=== PATIENT | female | born 1955 | race Native Hawaiian/Other Pacific Islander ===

== ENCOUNTER 2016-10-13 11:13 | Outpatient (CLI) | payer BC, OTHER ==
[~2016-10-13 11:13] MED LIST: BENICAR HCT1 TA2 PO; BENICAR40 MG PO; CEPHALEXIN500 MG PO; COLCRYS 0.6MG0.6 MG OR; FURO20TA67 PO; LIPITOR20 MG PO; PANT40TA PO; SIMV20TA2 PO; XYZAL5 MG OR
== END 2016-10-13 23:03 | disposition home or self-care (01) ==
LOC: RAD 11:13
DX: R05 Cough (principal)

== ENCOUNTER 2017-01-19 15:05 | Outpatient (CLI) | payer BC, OTHER | END 2017-01-19 16:00 | disposition home or self-care (01) | LOC: RAD 15:05 | DX: E55.9 Vitamin D deficiency, unspecified (principal) ==

== ENCOUNTER 2018-06-10 05:20 | Emergency (ER) | payer BC, OTHER ==
[~2018-06-10] VITALS: Ht 167.6 cm; Wt 94.8 kg
[2018-06-10 05:20] VITALS: TEMP 97.9
[2018-06-10 05:42] LABS: PLATELET COUNT 270 K/uL (152-353)
[2018-06-10 06:25] LABS: POTASSIUM 3.6 mmol/L (3.6-5.2)
[2018-06-10 09:45] VITALS: BP 118/60
== END 2018-06-10 10:20 | disposition home or self-care (01) ==
LOC: ED 05:20
PROVIDERS: Emergency Medicine
DX: B96.81 Helicobacter pylori [H. pylori] as the cause of diseases classified elsewhere (principal)
CPT/HCPCS: 36415; 80053; 81000; 82150; 83690; 85027; 86318; 96365; 96374; 96375; 96376; 99284; J2175; J2405; J2550; Q9963

== ENCOUNTER 2018-06-16 10:11 | Outpatient (CLI) | payer OTHER, BC | END 2018-06-16 19:19 | disposition home or self-care (01) | LOC: US 10:11 | DX: R94.5 Abnormal results of liver function studies (principal) ==

== ENCOUNTER 2018-06-16 10:20 | Day surgery (SDC) | payer OTHER, BC | END 2018-06-16 13:35 | disposition home or self-care (01) | LOC: OR 10:20 | PROC: 0DB68ZZ Excision of Stomach, Via Natural or Artificial Opening Endoscopic (ICD-10-PCS; principal; 2018-06-16) | PROC: 0DB88ZZ Excision of Small Intestine, Via Natural or Artificial Opening Endoscopic (ICD-10-PCS; 2018-06-16) | PROC: 0D758ZZ Dilation of Esophagus, Via Natural or Artificial Opening Endoscopic (ICD-10-PCS; 2018-06-16) | DX: K25.9 Gastric ulcer, unspecified as acute or chronic, without hemorrhage or perforation (principal); K21.0 Gastro-esophageal reflux disease with esophagitis; K22.2 Esophageal obstruction; K44.9 Diaphragmatic hernia without obstruction or gangrene; K29.80 Duodenitis without bleeding; K29.50 Unspecified chronic gastritis without bleeding; R19.00 Intra-abdominal and pelvic swelling, mass and lump, unspecified site; R13.19 Other dysphagia; R10.13 Epigastric pain; R11.2 Nausea with vomiting, unspecified; R10.12 Left upper quadrant pain | CPT/HCPCS: J2001; J2250; J2405; J2704 ==

== ENCOUNTER 2018-07-16 10:16 | Outpatient (CLI) | payer OTHER, BC | END 2018-07-16 19:16 | disposition home or self-care (01) | LOC: CT 10:16 | DX: R07.89 Other chest pain (principal) | CPT/HCPCS: 36415; 82565; 84520; Q9963 ==

== ENCOUNTER 2018-12-21 17:53 | Outpatient (CLI) | payer OTHER, BC | END 2018-12-21 20:33 | disposition home or self-care (01) | LOC: RAD 17:53 | DX: R05 Cough (principal) ==

== ENCOUNTER 2018-12-22 12:13 | Outpatient (CLI) | payer OTHER, BC ==
[2018-12-22 13:01] LABS: POTASSIUM 4.5 mmol/L (3.6-5.2); SODIUM 140 mmol/L (136-145)
[2018-12-22 13:29] LABS: PLATELET COUNT 258 K/uL (152-353)
== END 2018-12-22 20:13 | disposition home or self-care (01) ==
LOC: RESP 12:13
PROVIDERS: Nurse Practitioner Family
DX: R60.0 Localized edema (principal); J90 Pleural effusion, not elsewhere classified; R06.09 Other forms of dyspnea; J98.11 Atelectasis
CPT/HCPCS: 36415; 36600; 80053; 82550; 82805; 83880; 84484; 85027; 85379; 93306; Q9963

== ENCOUNTER 2018-12-28 11:59 | Outpatient (CLI) | payer OTHER, BC | END 2018-12-28 23:15 | disposition home or self-care (01) | LOC: RAD 11:59 | DX: J90 Pleural effusion, not elsewhere classified (principal) ==

== ENCOUNTER 2019-02-11 10:21 | Outpatient (CLI) | payer OTHER, BC | END 2019-02-11 19:13 | disposition home or self-care (01) | LOC: CT 10:21 | DX: J32.8 Other chronic sinusitis (principal) | CPT/HCPCS: 36415; 82565; 84520; Q9963 ==

== ENCOUNTER 2019-09-21 11:06 | Outpatient (CLI) | payer OTHER, BC | END 2019-09-21 21:11 | disposition home or self-care (01) | LOC: RAD 11:06 → MAMMO 11:06 → RAD 21:11 | DX: Z12.31 Encounter for screening mammogram for malignant neoplasm of breast (principal); M79.642 Pain in left hand; M79.641 Pain in right hand ==

== ENCOUNTER 2019-10-10 09:59 | Outpatient (CLI) | payer OTHER, BC | END 2019-10-10 19:05 | disposition home or self-care (01) | LOC: RAD 09:59 | DX: M81.0 Age-related osteoporosis without current pathological fracture (principal) ==

== ENCOUNTER 2019-12-23 13:25 | Outpatient (CLI) | payer OTHER, BC | END 2019-12-23 19:03 | disposition home or self-care (01) | LOC: CT 13:25 | DX: Z96.611 Presence of right artificial shoulder joint (principal) ==

== ENCOUNTER 2020-03-15 10:05 | Outpatient (CLI) | payer OTHER, BC ==
[2020-03-15 10:40] LABS: PLATELET COUNT 236 K/uL (152-353)
[2020-03-15 11:00] LABS: POTASSIUM 4.5 mmol/L (3.6-5.2)
== END 2020-03-15 22:52 | disposition home or self-care (01) ==
LOC: LABW 10:05
PROVIDERS: Internal Medicine
DX: E03.8 Other specified hypothyroidism (principal); I10 Essential (primary) hypertension; R06.09 Other forms of dyspnea
CPT/HCPCS: 36415; 80053; 81000; 82043; 82330; 82570; 83735; 84100; 84155; 84439; 84443; 85027; 85651; 86038

== ENCOUNTER 2020-04-06 10:06 | Outpatient (CLI) | payer OTHER, BC | END 2020-04-06 19:31 | disposition home or self-care (01) | LOC: CT 10:06 → RESP 11:00 → CT 19:31 | DX: R06.09 Other forms of dyspnea (principal); R60.0 Localized edema; R10.11 Right upper quadrant pain | CPT/HCPCS: Q9963 ==

== ENCOUNTER 2020-04-25 13:15 | Emergency (ER) | payer OTHER, BC ==
[~2020-04-25] VITALS: Ht 167.6 cm; Wt 93.4 kg
[2020-04-25 13:18] VITALS: TEMP 98.5
[2020-04-25 13:57] LABS: PLATELET COUNT 250 K/uL (152-353)
[2020-04-25 14:02] LABS: POTASSIUM 3.3 mmol/L (3.6-5.2); SODIUM 135 mmol/L (136-145)
[2020-04-25 14:30] LABS: PARTIAL THROMBOPLASTIN TIME 23.6 SECONDS (24.5-33.6)
[2020-04-25 20:15] VITALS: BP 138/70
== END 2020-04-25 20:15 | disposition home or self-care (01) ==
LOC: ED 13:15
PROVIDERS: Emergency Medicine
DX: I48.20 Chronic atrial fibrillation, unspecified (principal)
CPT/HCPCS: 80053; 82550; 82553; 84484; 85027; 85610; 85730; 93005; 96360; 96375; 99285; J3490

== ENCOUNTER 2020-06-21 10:33 | Outpatient (CLI) | payer OTHER, BC ==
[2020-06-21 10:53] LABS: PLATELET COUNT 221 K/uL (152-353)
[2020-06-21 11:06] LABS: POTASSIUM 3.7 mmol/L (3.6-5.2)
== END 2020-06-21 19:03 | disposition home or self-care (01) ==
LOC: LABW 10:33
PROVIDERS: Nurse Practitioner
DX: I48.92 Unspecified atrial flutter (principal)
CPT/HCPCS: 36415; 80053; 85027; 85610

== ENCOUNTER 2021-07-29 11:39 | Inpatient (IN) | payer BC ==
[~2021-07-29] VITALS: Ht 167.6 cm; Wt 96.4 kg
[2021-07-29 16:40] VITALS: BP 144/108; TEMP 98.7; Ht 167.6 cm; Wt 96.4 kg
[2021-07-29 17:23] LABS: PLATELET COUNT 225 K/uL (152-353)
[2021-07-29 17:54] LABS: POTASSIUM 3.2 mmol/L (3.6-5.2)
[2021-07-29 20:00] VITALS: BP 108/53; TEMP 98.3
[2021-07-30] VITALS (7 sets, daily range): BP systolic 98–144; BP diastolic 46–855; TEMP 97.8–98.7
[2021-07-30] MEDS ORDERED: METF500T PO (12:05)
[2021-07-30] MEDS ORDERED: LEVO0.1T6 PO (12:06)
[2021-07-30] MEDS ORDERED: METO-837 PO (12:07)
[2021-07-30] MEDS ORDERED: CHLORTHALID25 MG PO (12:08)
[2021-07-30] MEDS ORDERED: LIPITOR40 MG PO (12:08)
[2021-07-30] MEDS ORDERED: ELIQUIS5 MG PO (12:09)
[2021-07-30] MEDS ORDERED: PANTOPRAZOLE 40MG TA PO (12:09)
[2021-07-30] MEDS ORDERED: PEPCID40 MG PO (12:10)
[2021-07-30 12:13] LABS: PLATELET COUNT 147 K/uL (152-353)
[2021-07-30] MEDS ORDERED: FURO40TA93 PO (12:13)
[2021-07-30 12:35] LABS: POTASSIUM 3.2 mmol/L (3.6-5.2)
[2021-07-31 04:08] VITALS: BP 110/60; TEMP 97.8
[2021-07-31 08:00] VITALS: BP 124/65; TEMP 97.7
[2021-07-31 12:00] VITALS: BP 132/66; TEMP 98.4
[2021-07-31 13:15] LABS: PLATELET COUNT 153 K/uL (152-353)
[2021-07-31 13:35] LABS: POTASSIUM 4.6 mmol/L (3.6-5.2)
[2021-07-31 16:00] VITALS: BP 143/68; TEMP 98.4
[2021-07-31 20:00] VITALS: BP 127/86; TEMP 98.3
[2021-07-31 23:50] VITALS: BP 137/70; TEMP 98.8
[2021-08-01 04:00] VITALS: BP 176/87; TEMP 98.2
[2021-08-01 04:37] LABS: PLATELET COUNT 224 K/uL (152-353)
[2021-08-01 04:48] LABS: POTASSIUM 3.6 mmol/L (3.6-5.2)
[2021-08-01 08:00] VITALS: BP 133/64; TEMP 98.4
[2021-08-01 12:00] VITALS: BP 129/65; TEMP 98.8
[2021-08-01 16:00] VITALS: BP 127/62; TEMP 98.1
[2021-08-01 20:00] VITALS: BP 189/94; TEMP 98.7
[2021-08-02] VITALS: BP 122/64; TEMP 98.7
[2021-08-02 04:00] VITALS: BP 123/62; TEMP 98.5
[2021-08-02 04:15] LABS: PLATELET COUNT 179 K/uL (152-353)
[2021-08-02 08:00] VITALS: BP 131/58; TEMP 98.5
== END 2021-08-02 17:45 | disposition home or self-care (01) | DRG 438 ==
LOC: CT 11:39 → MED/SURG 16:20 → CT 16:20 → MED/SURG 08-02 17:45
PROVIDERS: ADMIT Family Medicine; ATTEND Family Medicine
DX: K85.80 Other acute pancreatitis without necrosis or infection (principal); I50.21 Acute systolic (congestive) heart failure; R78.81 Bacteremia; I11.0 Hypertensive heart disease with heart failure; E86.0 Dehydration; B96.20 Unspecified Escherichia coli [E. coli] as the cause of diseases classified elsewhere; E87.8 Other disorders of electrolyte and fluid balance, not elsewhere classified; E66.8 Other obesity; E11.9 Type 2 diabetes mellitus without complications; E78.49 Other hyperlipidemia; M15.8 Other polyosteoarthritis; K21.9 Gastro-esophageal reflux disease without esophagitis; K29.70 Gastritis, unspecified, without bleeding; E87.6 Hypokalemia; K72.90 Hepatic failure, unspecified without coma; Z68.29 Body mass index [BMI] 29.0-29.9, adult
CPT/HCPCS: 36415; 80053; 80061; 82150; 82550; 83605; 83690; 83735; 83880; 84100; 84443; 84484; 85027; 85379; 86140; 87040; 87077; 87186; 87205; 87635; 93005; 96365; 96366; 96367; 96375; J1650; J1885; J1940; J1956; J2175; J2405; J2543; J2550; J2765; J3475; J3480; J3490; U0003

== ENCOUNTER 2021-10-30 11:31 | Outpatient (CLI) | payer BC ==
[~2021-10-30 11:31] MED LIST changes: +CHLORTHALID25 MG PO; +ELIQUIS5 MG PO; +FURO40TA93 PO; +LEVO0.1T6 PO; +LIPITOR40 MG PO; +METF500T PO; +METO-837 PO; +PANTOPRAZOLE 40MG TA PO; +PEPCID40 MG PO
[2021-10-30 12:28] LABS: PLATELET COUNT 237 K/uL (152-353)
[2021-10-30 12:31] LABS: POTASSIUM 3.1 mmol/L (3.6-5.2)
== END 2021-10-30 19:26 | disposition home or self-care (01) ==
LOC: LABW 11:31
PROVIDERS: ATTEND Physician Assistant Medical
DX: R93.89 Abnormal findings on diagnostic imaging of other specified body structures (principal)
CPT/HCPCS: 36415; 80048; 85027

== ENCOUNTER 2022-06-18 08:15 | Outpatient (CLI) | payer BC ==
[2022-06-18 09:03] LABS: PLATELET COUNT 223 K/uL (152-353)
[2022-06-18 09:19] LABS: POTASSIUM 3.7 mmol/L (3.6-5.2)
== END 2022-06-18 19:26 | disposition home or self-care (01) ==
LOC: RAD 08:15
PROVIDERS: ATTEND Plastic Surgery
DX: Z01.812 Encounter for preprocedural laboratory examination (principal); Z01.818 Encounter for other preprocedural examination; Z01.811 Encounter for preprocedural respiratory examination; Z01.810 Encounter for preprocedural cardiovascular examination
CPT/HCPCS: 36415; 80048; 85027; 93005

== ENCOUNTER → 2022-08-06 | Outpatient (CLI) | payer BC | LOC: MRI 14:29 | PROVIDERS: ATTEND Nurse Practitioner Primary Care | DX: M25.552 Pain in left hip (principal) ==

== ENCOUNTER 2022-11-25 16:09 | Outpatient (CLI) | payer BC | END 2022-11-25 19:23 | disposition home or self-care (01) | LOC: RAD 16:09 | PROVIDERS: ATTEND Physician Assistant | DX: M54.59 Other low back pain (principal) ==

== ENCOUNTER 2023-01-12 10:59 | Outpatient (CLI) | payer BC ==
[2023-01-12 11:20] LABS: PLATELET COUNT 237 K/uL (152-353)
[2023-01-12 11:59] LABS: POTASSIUM 3.7 mmol/L (3.6-5.2)
== END 2023-01-12 20:41 | disposition home or self-care (01) ==
LOC: LABW 10:59
PROVIDERS: ATTEND Internal Medicine
DX: I10 Essential (primary) hypertension (principal); E55.9 Vitamin D deficiency, unspecified; Z79.899 Other long term (current) drug therapy
CPT/HCPCS: 36415; 80053; 81002; 82043; 82306; 82570; 83735; 84100; 84156; 85027

== ENCOUNTER 2023-01-19 21:52 | Emergency (ER) | payer BC ==
[~2023-01-19] VITALS: Ht 167.6 cm; Wt 99.8 kg
[2023-01-19 22:02] VITALS: TEMP 98.7
[2023-01-19 22:32] LABS: PLATELET COUNT 230 K/uL (152-353)
[2023-01-19 22:51] LABS: POTASSIUM 3.2 mmol/L (3.6-5.2)
[2023-01-19 23:02] LABS: PARTIAL THROMBOPLASTIN TIME 26.1 SECONDS (23.9-36.7)
[2023-01-20 00:36] VITALS: BP 120/52
== END 2023-01-20 00:35 | disposition home or self-care (01) ==
LOC: ED 21:52
PROVIDERS: Emergency Medicine Emergency Medical Services
DX: S46.912A Strain of unspecified muscle, fascia and tendon at shoulder and upper arm level, left arm, initial encounter (principal); X58.XXXA Exposure to other specified factors, initial encounter; I10 Essential (primary) hypertension; I48.91 Unspecified atrial fibrillation
CPT/HCPCS: 36415; 80053; 82550; 84484; 85027; 85379; 85610; 85730; 93005; 99284